=== PATIENT | female | born 1985 | race Caucasian/White ===

== ENCOUNTER 2016-12-02 08:06 | Emergency (ER) | payer OTHER ==
[~2016-12-02] VITALS: Ht 160 cm; Wt 86.2 kg
[~2016-12-02 08:06] MED LIST: AMOXICILLIN 50500 M1 PO; ASPIRIN325 PO; AUGMENTIN 875875 MG PO; AZO CRANBERRY1 EACH PO; BACTRIM; BACTRIM DS TAB1 EACH PO; BIRTH CONTROL; CIPROFLOXACIN500 M1 PO; CIPROFLOXACIN500 M3; CLARITIN10 MG PO; CYCLOBENZAPRINE5 MG PO; HYCET 7.5 MG-3473 ML PO; IBUPROFEN 600600 M1; IBUPROFEN 600600 M1 PO; NORCO 5-325 TA1 EACH; NORCO 5-325 TA1 EACH PO; PREDNISONE 20 M20 MG PO; PREDNISONE50 MG PO; PRENATAL PO; PROAIR HFA8.5 GM; TOBREX5 ML OPHTHALMIC; ZYRTEC10 MG PO
[2016-12-02 08:53] LABS: URINE BILIRUBIN NEGATIVE (Negative); URINE BLOOD 1+ (Negative); URINE COLOR YELLOW; URINE GLUCOSE-RANDOM* NEGATIVE (Negative); URINE KETONES NEGATIVE (Negative); URINE NITRITE NEGATIVE (Negative); URINE PROTEIN (DIPSTICK) NEGATIVE (Negative); URINE SPECIFIC GRAVITY 1.025 (1.003-1.035); URINE UROBILINOGEN 0.2 E.U./dl (0.2-1.0)
[2016-12-02 09:07] LABS: CASTS None Seen /LPF (None Seen); SQUAMOUS >10 Many /LPF (0-3); URINE WBC 0-5 Rare /HPF (0-5)
[2016-12-02 09:08] LABS: BACTERIA 1-9 Few /HPF (None Seen); CRYSTALS None Seen /LPF (None Seen); URINE RBC 0-2 Rare /HPF (0-2)
[2016-12-02 11:14] VITALS: BP 109/72
== END 2016-12-02 11:29 | disposition home or self-care (01) ==
LOC: ER 08:06
PROVIDERS: Nurse Practitioner
DX: O20.0 Threatened abortion (principal); Z3A.01 Less than 8 weeks gestation of pregnancy; J45.909 Unspecified asthma, uncomplicated; Z98.890 Other specified postprocedural states; Z87.891 Personal history of nicotine dependence

== ENCOUNTER 2018-04-25 08:17 | Emergency (ER) | payer OTHER ==
[~2018-04-25] VITALS: Ht 160 cm; Wt 81.7 kg
[~2018-04-25 08:17] MED LIST changes: +CLEOCIN HCL150 MG PO; +NEXIUM40 MG PO; +SENNA-DOCUSATE1 EAC1 PO
[2018-04-25] MEDS ORDERED: CLARITIN10 MG PO (08:28)
[2018-04-25] MEDS ORDERED: ATIVAN0.5 MG PO (08:28)
[2018-04-25 09:04] LABS: ABSOLUTE NEUTROPHILS 2.8 thou/uL (1.4-8.2); BASOPHILS 1.2 % (0.0-2.0); EOSINOPHILS 7.6 % (0.0-3.0); HEMATOCRIT 40.9 % (37.0-47.0); HEMOGLOBIN 13.4 gm/dL (12.0-15.0); LYMPHOCYTES 35.2 % (24.0-44.0); MCHC 32.8 g/dL (28.0-37.0); MCV 82.3 fL (80.0-100.0); MONOCYTES 7.7 % (1.0-8.0); PLATELET COUNT 214 thou/uL (150-400); POLYS 48.3 % (36.0-66.0); RBC 4.97 mil/uL (4.20-5.00); RDW 16.7 % (10.5-14.5); WBC 5.8 thou/uL (4.0-11.0)
[2018-04-25 09:10] LABS: CALCIUM 9.4 mg/dL (8.5-10.1); CREATININE 0.7 mg/dL (0.6-1.0); POTASSIUM 4.1 mmol/L (3.5-5.1)
[2018-04-25 09:15] LABS: ALBUMIN 4.1 g/dL (3.4-5.0); TOTAL BILIRUBIN 0.3 mg/dL (<0.1-1.0); TOTAL PROTEIN 7.6 g/dL (6.4-8.2)
[2018-04-25] MEDS ORDERED: ZOFRAN ODT4 MG PO (10:18)
[2018-04-25 10:26] VITALS: BP 102/67
== END 2018-04-25 10:57 | disposition home or self-care (01) ==
LOC: ER 08:17
PROVIDERS: Emergency Medicine
DX: R11.2 Nausea with vomiting, unspecified (principal); M79.18 Myalgia, other site; M25.551 Pain in right hip; M79.604 Pain in right leg; F41.9 Anxiety disorder, unspecified; J45.909 Unspecified asthma, uncomplicated; Z87.891 Personal history of nicotine dependence; Z98.890 Other specified postprocedural states

== ENCOUNTER 2018-08-16 06:45 | Emergency (ER) | payer OTHER ==
[~2018-08-16] VITALS: Ht 160 cm; Wt 79.4 kg
[~2018-08-16 06:45] MED LIST changes: +ATIVAN0.5 MG PO; +ZOFRAN ODT4 MG PO
[2018-08-16 06:50] VITALS: BP 116/73
[2018-08-16] MEDS ORDERED: CEPACOL SORE T1 EAC7 TOP (07:52)
== END 2018-08-16 07:50 | disposition home or self-care (01) ==
LOC: ER 06:45
DX: J02.8 Acute pharyngitis due to other specified organisms (principal); B97.89 Other viral agents as the cause of diseases classified elsewhere; F41.9 Anxiety disorder, unspecified; J45.909 Unspecified asthma, uncomplicated; F17.210 Nicotine dependence, cigarettes, uncomplicated; Z98.890 Other specified postprocedural states